=== PATIENT | male | born 1975 | race Two or more races ===

== ENCOUNTER 2017-06-05 06:52 | Day surgery (SDC) | payer OTHER | END 2017-06-05 10:55 | disposition home or self-care (01) | LOC: AMB-ENDOS 06:52 | DX: K57.30 Diverticulosis of large intestine without perforation or abscess without bleeding (principal); K64.2 Third degree hemorrhoids ==

== ENCOUNTER 2020-05-27 06:00 | Day surgery (SDC) | payer OTHER ==
[2020-05-27] MEDS ORDERED: CARAFATE1 GM/10 ML PO (09:08)
== END 2020-05-27 10:20 | disposition home or self-care (01) ==
LOC: AMB-ENDOS 06:00
PROVIDERS: ATTEND Surgery
DX: K31.7 Polyp of stomach and duodenum (principal); K44.9 Diaphragmatic hernia without obstruction or gangrene; Z20.828 Contact with and (suspected) exposure to other viral communicable diseases

== ENCOUNTER 2020-07-15 05:50 | Day surgery (SDC) | payer OTHER ==
[~2020-07-15 05:50] MED LIST: CARAFATE1 GM/10 ML PO
== END 2020-07-15 09:30 | disposition home or self-care (01) ==
LOC: AMB-ENDOS 05:50
PROVIDERS: ATTEND Internal Medicine Gastroenterology
DX: K31.7 Polyp of stomach and duodenum (principal); K44.9 Diaphragmatic hernia without obstruction or gangrene; Z20.822 Contact with and (suspected) exposure to COVID-19

== ENCOUNTER 2020-12-09 09:49 | Outpatient (CLI) | payer OTHER | END 2020-12-09 10:12 | disposition home or self-care (01) | LOC: RX STUDY 09:49 | PROVIDERS: ATTEND Surgery | DX: K76.0 Fatty (change of) liver, not elsewhere classified (principal); K44.9 Diaphragmatic hernia without obstruction or gangrene; R10.13 Epigastric pain; K21.9 Gastro-esophageal reflux disease without esophagitis; E66.01 Morbid (severe) obesity due to excess calories; R10.31 Right lower quadrant pain; E00.0 Congenital iodine-deficiency syndrome, neurological type ==